=== PATIENT | male | born 1990 | race Caucasian/White ===

== ENCOUNTER 2023-03-22 10:28 | Emergency (ER) | payer BC, SELFPAY ==
[2023-03-22 10:40] VITALS: BP 141/84; PULSE 84; RESP 14; TEMP 36.5; O2SAT 99
[2023-03-22 10:44] VITALS: BP 141/84; PULSE 84; RESP 14; TEMP 36.5; O2SAT 99
--- NOTE | 2023-03-22 11:07 | ED.GENADULT ---
HPI - General Adult General Chief complaint: Upper Respiratory Infection Stated complaint: Wheezing / cough Source: patient and RN notes reviewed Mode of arrival: ambulatory History of Present Illness HPI narrative: 32-year-old male presents to the [facility] today complaining of a cough for 1 week. Patient states he started to feel sick and stated he had body aches, chills, and a cough. Since then most of his symptoms have improved however the patient still is complaining of a cough. Patient stated that he used [facility] for evaluation of about 5 days ago and was prescribed Tessalon Perles and albuterol and states that he is not getting any better. Patient states he came in today because he was coughing blood-tinged sputum today and he was worried that it is getting worse. Patient states he does have some difficulty breathing but denies any chest pain. Patient denies any fevers, nausea, vomiting, diarrhea. Related Data Allergies Allergy/AdvReac Type Severity Reaction Status Date / Time No Known Allergies Allergy Verified 03/22/23 10:44 Review of Systems Review of Systems: CONSTITUTIONAL: Denies fever, chills, or sweats. EYES: Denies visual changes, redness, or discharge. ENT: Denies otalgia and sore throat CARDIOVASCULAR: Denies chest pain, palpitations, or edema. RESPIRATORY: Positive for cough or dyspnea. GASTROINTESTINAL: Denies abdominal pain, nausea, vomiting, or diarrhea. GENITOURINARY: Denies dysuria or hematuria. SKIN: Denies rash or itching. MUSCULOSKELETAL: Denies back pain, joint pain, or myalgia. NEUROLOGIC: Denies headache, numbness, or weakness. Pertinent positives per HPI. PMFSH Comments At the time of my signature, I reviewed and agree with the nursing past medical, surgical, social, and family history. There is no relevant family history pertinent to the patient complaint. Exam Narrative: GENERAL: This is a well-nourished, well-developed patient, in no apparent distress. HEAD: normocephalic, atraumatic. EYES: Sclera clear/white. Vision is grossly intact. EARS: External ears normal, auditory canals clear and without drainage, TMs normal without perforation. Hearing grossly intact. NOSE: External nose normal with no obvious nasal discharge, nares without redness, no rhinorrhea. THROAT: Mucous membranes moist, posterior pharynx clear. NECK: Neck supple, non-tender without lymphadenopathy, masses or thyromegaly. CARDIOVASCULAR: Regular rate and rhythm without murmurs, gallops, or rubs. RESPIRATORY: Mild end expiratory wheezes in the lower lobes during auscultation. Otherwise lung sounds are clear, respiratory rate is regular, normal depth, no accessory muscle use, no retractions. GASTROINTESTINAL: Abdomen soft, non-tender, nondistended. Bowel sounds are active. No hepato-splenomegaly, or palpable masses. No guarding. SKIN: warm, intact with no suspicious lesions or rash, good texture and turgor. NEURO: awake, alert, and oriented to person, place and time. There were no obvious focal neurologic abnormalities. EXTREMITIES: No clubbing, cyanosis, or edema. No joint tenderness, effusion, or edema noted. BACK: Nontender without deformity or crepitus. No flank tenderness. Course Course Level of Care: Express Care Visit Vital Signs Vital signs: Vital Signs Temperature 97.7 F 03/22/23 10:40 Pulse Rate 84 03/22/23 10:40 Respiratory Rate 14 03/22/23 10:40 Blood Pressure 141/84 H 03/22/23 10:40 Pulse Oximetry 99 03/22/23 10:40 Oxygen Delivery Room Air 03/22/23 10:40 Temperature 97.7 F 03/22/23 10:44 Pulse Rate 84 03/22/23 10:44 Respiratory Rate 14 03/22/23 10:44 Blood Pressure 141/84 H 03/22/23 10:44 Pulse Oximetry 99 03/22/23 10:44 Oxygen Delivery Room Air 03/22/23 10:44 Reviewed Medical Decision Making MDM Narrative Medical decision making narrative: Take steroids as directed. May use the inhaler every 4-6 hours as needed for coughing. Increase
== END 2023-03-22 11:07 | disposition home or self-care (01) ==
PROVIDERS: Emergency Provider Nurse Practitioner Family; PCP Physician Assistant
DX: J40 Bronchitis, not specified as acute or chronic (principal)
CPT/HCPCS: 99213; G0463